=== PATIENT | female | born 1990 | race Caucasian/White ===

== ENCOUNTER 2017-06-28 18:24 | Emergency (ER) | payer OTHER ==
[2017-06-28 18:31] VITALS: BMI 25.7
[2017-06-28 18:36] VITALS: BP 119/88; PULSE 64; TEMP 97.9
--- NOTE | 2017-06-28 18:40 | PDOC ---
History of Present Illness - General History Source: Patient, Old Records Exam Limitations: No Limitations - History of Present Illness Initial Comments: 06/28/17 19:07 The patient is a 26 year old female with a significant past medical history of anxiety who presents to the emergency department with shortness of breath and chest tightness for 4 days. The patient reports that her symptoms have been progressively worsening since Tuesday. She reports that she took a medrol dose she had left over from a recent upper respiratory infection with no relief of symptoms. She endorses associated dry cough, weakness, and tingling/numbness bilaterally from her shoulders to her fingertips. She denies recent travel, recent surgeries, and swelling. She denies nausea, fever, and chills. She denies a history of pulmonary embolisms and DVTs. <Freedom Peterson - Last Filed: 06/28/17 19:10> <Buddy Navarro - Last Filed: 06/28/17 19:33> - General Chief Complaint: Shortness of Breath Stated Complaint: sob Time Seen by Provider: 06/28/17 18:34 Past History <Freedom Peterson - Last Filed: 06/28/17 19:10> - Past Medical History COPD: No Other medical history: pt states chronic bronchitis - Suicide/Smoking/Psychosocial Hx Smoking History: Never smoked Have you smoked in the past 12 months: No Hx Alcohol Use: No Drug/Substance Use Hx: No Substance Use Type: None <Buddy Navarro - Last Filed: 06/28/17 19:33> - Past Medical History Allergies/Adverse Reactions: Allergies Allergy/AdvReac Type Severity Reaction Status Date / Time No Known Allergies Allergy Verified 06/28/17 18:25 Home Medications: Ambulatory Orders NK [No Known Home Medication] 06/28/17 Review of Systems - Review of Systems Able to Perform ROS?: Yes Comments:: 06/28/17 19:07 CONSTITUTIONAL: (+) Generalized Weakness Absent: Fever, Chills, Diaphoresis, Malaise, Loss of Appetite HEENT: Absent: Rhinorrhea, Nasal Congestion, Throat Pain, Throat Swelling, Difficulty Swallowing, Mouth Swelling, Ear Pain, Eye Pain, Visual Changes CARDIOVASCULAR: (+) Chest tightness, bilateral arm numbness Absent: Syncope, Palpitations, Irregular Heart Rate, Lightheadedness, Peripheral Edema RESPIRATORY: (+) Cough, Shortness of Breath Absent: SOB with Exertion, Orthopnea, Wheezing, Stridor, Hemoptysis GASTROINTESTINAL: Absent: Abdominal pain, Abdominal Distension, Nausea, Vomiting, Diarrhea, Constipation, Melena, Hematochezia GENITOURINARY: Absent: Dysuria, Frequency, Urgency, Hesitancy, Flank Pain, Genital Pain MUSCULOSKELETAL: Absent: Myalgia, Arthralgia, Joint Swelling, Back pain, Neck Pain SKIN: Absent: Rash, Itching, PalloR HEMATOLOGIC/IMMUNOLOGIC: Absent: Easy Bleeding, Easy Bruising, Lymphadenopathy, Frequent infections ENDOCRINE: Absent: Unexplained Weight Gain, Unexplained Weight Loss, Heat Intolerance, Cold Intolerance NEUROLOGIC: Absent: Headache, Focal Weakness, Paresthesias, Vertigo, Lightheadedness, Unsteady Gait, Seizure, Mental Status Changes, Incontinence PSYCHIATRIC: Absent: Anxiety, Depression <Freedom Peterson - Last Filed: 06/28/17 19:10> *Physical Exam - Vital Signs Last Vital Signs Temp Pulse Resp BP Pulse Ox 97.9 F 64 16 119/88 100 06/28/17 18:25 06/28/17 18:25 06/28/17 18:25 06/28/17 18:25 06/28/17 18:25 - Physical Exam Comments: 06/28/17 19:07 GENERAL: The patient is awake, alert, and fully oriented, in no acute distress. HEAD: Normal with no signs of trauma. EYES: Pupils equal, round and reactive to light, extraocular movements intact, sclera anicteric, conjunctiva clear. ENT: Ears normal, nares patent, oropharynx clear without exudates. Moist mucous membranes. NECK: Normal range of motion, supple without lymphadenopathy, JVD, or masses. LUNGS: Breath sounds equal, clear to auscultation bilaterally. No wheezes, and no crackles. HEART: Regular rate and rhythm, normal S1 and S2 without murmur, rub or gallop. CHEST: (+) Costochondral tenderness bilaterally ABDOMEN: Soft, nontender, normoactive bowel sounds. No guarding, no rebound. No masses. EXTREMITIES: Normal range of motion, no edema. No clubbing or cyanosis. No cords , erythema, or tenderness. NEUROLOGICAL: Cranial nerves II through XII grossly intact. Normal speech, normal gait. PSYCH: Normal mood, normal affect. SKIN: Warm, Dry, normal turgor, no rashes or lesions noted. <Freedom Peterson - Last Filed: 06/28/17 19:10> - Vital Signs Last Vital Signs Temp Pulse Resp BP Pulse Ox 97.9 F 64 16 119/88 100 06/28/17 18:25 06/28/17 18:25 06/28/17 18:25 06/28/17 18:25 06/28/17 18:25 <Buddy Navarro - Last Filed: 06/28/17 19:33> Moderate Sedation - Procedure Monitoring Vital Signs: Vital Signs Temp Pulse Resp BP Pulse Ox 97.9 F 64 16 119/88 100 06/28/17 18:25 06/28/17 18:25 06/28/17 18:25 06/28/17 18:25 06/28/17 18:25 <Freedom Peterson - Last Filed: 06/28/17 19:10> - Procedure Monitoring Vital Signs: Vital Signs Temp Pulse Resp BP Pulse Ox 97.9 F 64 16 119/88 100 06/28/17 18:25 06/28/17 18:25 06/28/17 18:25 06/28/17 18:25 06/28/17 18:25 <Buddy Navarro - Last Filed: 06/28/17 19:33> Heart Score/ECG Review - ECG Impressions Comment:: 06/28/17 19:17 Twelve-lead EKG shows normal sinus rhythm at a rate of 65 bpm. The axis is normal. The intervals are all normal. There are no abnormal Q waves. There is no significant ST elevation or depression, but there is mild early repolarization, normal for age. Impression: Normal sinus rhythm at 65, normal 12-lead EKG. <Buddy Navarro - Last Filed: 06/28/17 19:33> Medical Decision Making - Medical Decision Making 06/28/17 19:07 Documentation prepared by Freedom Peterson, acting as certified medical coder for Buddy Navarro MD. <Freedom Peterson - Last Filed: 06/28/17 19:10> - Medical Decision Making 06/28/17 19:13 Patient is a healthy 26-year-old female. She has a history of reactive airways disease typically set off by upper respiratory infections. When she gets an infection she uses an inhaler as well as Medrol. Her last episode of upper respiratory infection was approximately one month ago. She has no risk factors for acute coronary syndrome. Her family history is positive for hypertension and diabetes, but negative for premature coronary disease. She comes in now complaining of 4 days of chest tightness with shortness of breath and parasternal chest discomfort. She has no risk factors for PE. She does not take control pills, there is no recent travel, and there is no family history of DVT or PE. She has had prior episodes of chest tightness and pain, which she related to anxiety. Today she read on the Internet that chest pain and tingling in the arms could be consistent with a heart attack or stroke, so she came to the ED for further evaluation. On examination, her vital signs are all completely normal. She appears well. There is no respiratory distress. Lungs are clear and heart is regular rhythm without gallop or murmur. There is parasternal chest wall tenderness to palpation bilaterally. Extremities are normal. Twelve-lead EKG shows normal sinus rhythm at [address] or T-wave changes. Chest x-ray PA and lateral is pending. Impression: Probable costochondritis. Possible component of anxiety. Air entry and expiration are normal, with no signs of reactive airways on examination. Plan: Tatiana Check chest x-ray prior to discharge. <Buddy Navarro - Last Filed: 06/28/17 19:33> *DC/Admit/Observation/Transfer <Freedom Peterson - Last Filed: 06/28/17 19:10> - Attestations Physician Attestion: 06/28/17 19:16 The scribe's documentation has been prepared under my direction and personally reviewed by me in its entirety. I have confirmed that the note above accurately reflects all work, treatment, procedures, and medical decision- making performed by me. <Buddy Navarro - Last Filed: 06/28/17 19:33> Diagnosis at time of Disposition: Costochondritis, acute - Discharge Dispostion Condition at time of disposition: Stable - Patient Instructions Printed Discharge Instructions: DI for Costochondritis Additional Instructions: Please return to the ER if you experience concerning or worsening symptoms including worsening chest pain, difficulty breathing, or fevers. You may use ibuprofen as needed at home to help manage your symptoms. It is important that you call to schedule a follow up appointment with your primary care provider within 1 week to discuss your ER visit and further management of your symptoms.
[2017-06-28] MEDS ORDERED: IBUPROFEN 600 MG TABLET (FP) PO ONE ×2 (18:45→19:24)
--- NOTE | 2017-06-28 18:52 | PDOC ---
History of Present Illness <Janki Mohamud - Last Filed: 06/28/17 20:22> - History of Present Illness Initial Comments: 06/28/17 18:45 The patient is a 26 year old female with no significant PMH who presents for evaluation of chest tightness and shortness of breath. The patient reports a 4 day history of chest tightness with associated shortness of breath that acutely worsened today prompting her presentation to the ED for further evaluation. She notes that she was concerned that she was having a "heart attack" and notes that she has had anxiety attacks in the past, but her current symptoms feel different. She states that she took a dose of a medrol dose pack she had left over from a bronchitis she experienced several months ago, but reports minimal improvement in her symptoms and has not tried any other medications. She denies recent long travel, history of PE, DVT, or OCP use. She otherwise denies fevers, chills, nausea, vomiting, cough, abdominal pain, or changes with urination or bowel movements or leg swelling. <Onofre Padron - Last Filed: 06/29/17 13:37> - General Chief Complaint: Shortness of Breath Stated Complaint: sob Time Seen by Provider: 06/28/17 18:34 Past History <Janki Mohamud - Last Filed: 06/28/17 20:22> - Past Medical History COPD: No Other medical history: pt states chronic bronchitis - Suicide/Smoking/Psychosocial Hx Smoking History: Never smoked Have you smoked in the past 12 months: No Hx Alcohol Use: No Drug/Substance Use Hx: No Substance Use Type: None <Onofre Padron - Last Filed: 06/29/17 13:37> - Past Medical History Allergies/Adverse Reactions: Allergies Allergy/AdvReac Type Severity Reaction Status Date / Time No Known Allergies Allergy Verified 06/28/17 18:25 Home Medications: Ambulatory Orders NK [No Known Home Medication] 06/28/17 Review of Systems - Review of Systems Comments:: 06/28/17 18:48 Constitutional: No fevers, chills, fatigue, malaise HEENT: No Rhinorrhea, nasal congestion, visual changes Cardiovascular: Chest Tightness. No syncope, palpitations, lightheadedness Respiratory: SOB. No Cough, Hemoptysis, Gastrointestinal: No Abdominal pain, Nausea, Vomiting, Constipation, Diarrhea, Melena Genitourinary: No Dysuria, Frequency, Urgency, Hesitancy, Hematuria, Flank pain Musculoskeletal: No Myalgia, arthralgia Skin: No rashes, itching, bruising, pallor Neurologic: No Headache, Dizziness, Numbness, Weakness, or Tingling Psychiatric: No Hallucinations. No SI or HI <Onofre Padron - Last Filed: 06/29/17 13:37> *Physical Exam - Vital Signs Last Vital Signs Temp Pulse Resp BP Pulse Ox 97.9 F 64 16 119/88 100 06/28/17 18:25 06/28/17 18:25 06/28/17 18:25 06/28/17 18:25 06/28/17 18:25 <Janki Mohamud - Last Filed: 06/28/17 20:22> - Vital Signs Last Vital Signs Temp Pulse Resp BP Pulse Ox 97.9 F 64 16 119/88 100 06/28/17 18:25 06/28/17 18:25 06/28/17 18:25 06/28/17 18:25 06/28/17 18:25 - Physical Exam Comments: 06/28/17 18:49 General Appearance: Nourished. No Apparent Distress HEENT: EOMI, MARINO. No Pharyngeal Erythema, Tonsillar Exudate, Tonsillar Erythema Neck: No Cervical Lymphadenopathy Respiratory/Chest: Lungs Clear, Normal Breath Sounds. Reproducible tenderness to palpation along the sternal border noted on exam. No Crackles, Rales, Rhonchi, Wheezing Cardiovascular: Regular Rhythm, Regular Rate. No Murmur, Gallops, Rubs Gastrointestinal/Abdominal: Normal Bowel Sounds, Soft. No Guarding, Rebound, Tenderness Musculoskeletal: No CVA Tenderness Extremity: No lower extremity edema. Normal Capillary Refill Integumentary: Normal Color, Dry, Warm Neurologic: Fully Oriented, Alert, Normal Mood/Affect, Normal Response, <Onofre Padron - Last Filed: 06/29/17 13:37> Moderate Sedation - Procedure Monitoring Vital Signs: Vital Signs Temp Pulse Resp BP Pulse Ox 97.9 F 64 16 119/88 100 06/28/17 18:25 06/28/17 18:25 06/28/17 18:25 06/28/17 18:25 06/28/17 18:25 <Janki Mohamud - Last Filed: 06/28/17 20:22> - Procedure Monitoring Vital Signs: Vital Signs Temp Pulse Resp BP Pulse Ox 97.9 F 64 16 119/88 100 06/28/17 18:25 06/28/17 18:25 06/28/17 18:25 06/28/17 18:25 06/28/17 18:25 <Onofre Padron - Last Filed: 06/29/17 13:37> ED Treatment Course - ADDITIONAL ORDERS Additional order review: Laboratory Results 06/28/17 19:20 Urine HCG, Qual Negative - Medications Given in the ED: ED Medications Discontinued Medications Generic Name Dose Route Start Last Admin Trade Name Freq PRN Reason Stop Dose Admin Ibuprofen 600 mg 06/28/17 18:45 06/28/17 19:41 Motrin - PO 06/28/17 18:46 600 mg ONCE ONE Administration <Janki Mohamud - Last Filed: 06/28/17 20:22> - RADIOLOGY Radiology Studies Ordered: Category Date Time Status CHEST PA & LAT [RAD] Stat Radiology 06/28/17 18:44 Ordered <Onofre Padron - Last Filed: 06/29/17 13:37> Medical Decision Making - Medical Decision Making 06/28/17 20:22 EKG WNL CXR clear DC w/ costochondritis -- MD Cade 06/28/17 20:23 <Janki Mohamud - Last Filed: 06/28/17 20:22> - Medical Decision Making 06/28/17 18:50 The patient is a 26 year old female with no significant PMH who presents for evaluation of chest tightness and shortness of breath. Differential includes but is not limited to: PE, Pneumothorax, Pneumonia, Bronchitis, ACS, Musculoskeletal, Costochondritis. Given the patient's reproducible tenderness on exam and history, it is likely her symptoms are musculoskeletal in nature and due to a costochondritis. The patient is at low risk for PE and DVT as per the PERC rule. We will obtain a chest plain film and ekg to evaluate for other possible etiologies. We will treat with ibuprofen in the meantime and continue to monitor and reassess while here in the ED. 06/28/17 19:00 Patient signed out to the night team pending chest plain film, ekg, and reassessment. <Onofre Padron - Last Filed: 06/29/17 13:37> *DC/Admit/Observation/Transfer - Discharge Dispostion Decision to Admit order: No <Janki Mohamud - Last Filed: 06/28/17 20:22> <NereidaBraxtonOnofre - Last Filed: 06/29/17 13:37> Diagnosis at time of Disposition: Costochondritis, acute - Discharge Dispostion Disposition: HOME Condition at time of disposition: Stable - Patient Instructions Printed Discharge Instructions: DI for Costochondritis Additional Instructions: Please return to the ER if you experience concerning or worsening symptoms including worsening chest pain, difficulty breathing, or fevers. You may use ibuprofen as needed at home to help manage your symptoms. It is important that you call to schedule a follow up appointment with your primary care provider within 1 week to discuss your ER visit and further management of your symptoms.
--- NOTE | 2017-06-29 11:13 | EKG ---
Test Reason : Blood Pressure : / mmHG Vent. Rate : 065 BPM Atrial Rate : 065 BPM P-R Int : 144 ms QRS Dur : 082 ms QT Int : 370 ms P-R-T Axes : -06 044 049 degrees QTc Int : 384 ms NORMAL SINUS RHYTHM NORMAL ECG NO PREVIOUS ECGS AVAILABLE Confirmed by FLORENCE BERG, GRICEL ([id number]) on 06/29/2017 11:13:31 AM Referred By: DR PASCUAL Confirmed By:GRICEL HENRIQUEZ MD
== END 2017-06-28 20:31 | disposition home or self-care (01) ==
LOC: FER 18:24
DX: M94.0 Chondrocostal junction syndrome [Tietze] (principal); J45.909 Unspecified asthma, uncomplicated
CPT/HCPCS: 71046-TC-FY; 84703; 93005; 99282-25

== ENCOUNTER 2018-05-17 18:42 | Emergency (ER) | payer SELFPAY ==
[2018-05-17 18:55] VITALS: BP 106/81; PULSE 104; TEMP 97.4; BMI 21.4
--- NOTE | 2018-05-17 19:15 | PDOC ---
History of Present Illness - General History Source: Patient Exam Limitations: No Limitations - History of Present Illness Initial Comments: 05/17/18 19:36 The patient is a 27 year old female, with no significant past medical history of who presents to the emergency department with rashes on her arms, leg, and back since this morning. The patient notes she woke up this morning and noticed she had rashes on her arms; she later went to the restroom and noticed them on her legs, chest and back. The patient states she has a dog who sleeps in her room, however, the dog does not sleep in her bed. The patient denies any recent travel. Denies using new lotions, creams, laundry detergent, or food. The patient denies chest pain, shortness of breath, headache or dizziness. The patient denies fever, chills, nausea, vomit, diarrhea or constipation. The patient denies dysuria, frequency, urgency or hematuria. PAST MEDICAL HISTORY: no significant history PAST SURGICAL HISTORY: no significant history FAMILY HISTORY: no pertinent history SOCIAL HISTORY: Pt lives with family and is employed. MEDICATIONS: reviewed ALLERGIES: Shrimp <Quique Ramos - Last Filed: 05/17/18 19:35> - General History Source: Patient Exam Limitations: No Limitations - History of Present Illness Initial Comments: A portion of this note was documented by scribe services under my direction. I have reviewed the details of the note, within reason, and agree with the documentation with the following case summary and management plan written by me. Patient treated in the ED. Nursing notes are reviewed and incorporated into the medical decision-making. Vital signs reviewed. Assessment and plan: This is a 27-year-old female who comes in complaining of a rash times one today. Patient said rashes itchy. On my exam it looks like patient has 2 etiologies 1 is a few bug bites/mosquito bites the other is a contact dermatitis appearing rash. Both should respond well to Benadryl or antihistamines patient was told to take them and follow-up with her primary care doctor 05/17/18 20:22 <Emmanuel Guzman I - Last Filed: 05/17/18 20:23> - General Chief Complaint: Rash Stated Complaint: RASH TO ARMS LEGS BACK AND CHEST Time Seen by Provider: 05/17/18 19:09 Past History <Quique Ramos - Last Filed: 05/17/18 19:35> - Past Medical History COPD: No - Suicide/Smoking/Psychosocial Hx Smoking History: Current every day smoker Have you smoked in the past 12 months: No Information on smoking cessation initiated: No Hx Alcohol Use: No Drug/Substance Use Hx: No Substance Use Type: None <Emmanuel Guzman I - Last Filed: 05/17/18 20:23> - Past Medical History Allergies/Adverse Reactions: Allergies Allergy/AdvReac Type Severity Reaction Status Date / Time shrimp Allergy Severe Difficulty Verified 05/17/18 18:44 Breathing Home Medications: Ambulatory Orders NK [No Known Home Medication] 05/17/18 Review of Systems - Review of Systems Able to Perform ROS?: Yes Comments:: 05/17/18 19:37 General: No fevers or chills, no weakness, no weight loss HEENT: No change in vision. No sore throat,. No ear pain CardioVascular: No chest pain or shortness of breath Respiratory:No cough, or wheezing. Gastrointestinal: no nausea, vomiting, diarrhea or constipation, No rectal bleeding Genitourinary: No dysuria, hematuria, or frequency Musculoskeletal: No joint or muscle pain or swelling Neurologic: No headache, vertigo, dizziness or loss of consciousness Psychiatric: nor depression Skin: (+) rashes on legs, arms, and back. Endocrine: no increased thirst or abnormal weight change Allergic: no skin or latex allergy All other systems reviewed and normal All Other Systems: Reviewed and Negative <Quique Ramos - Last Filed: 05/17/18 19:35> *Physical Exam - Vital Signs Last Vital Signs Temp Pulse Resp BP Pulse Ox 97.4 F L 104 H 18 106/81 100 05/17/18 18:43 05/17/18 18:43 05/17/18 18:43 05/17/18 18:43 05/17/18 18:43 - Physical Exam Comments: 05/17/18 19:37 General: Well-nourished well-developed individual, no acute distress HEENT: Throat: Normal, tonsils normal, no erythema or exudate Neck: Supple, no meningeal signs, no lymphadenopathy Eyes:Pupils equal reactive and round, extraocular motion intact Chest: Nontender to palpation Cardiac: S1-S2 normal, regular rate and rhythm, no murmurs rubs or gallops Respiratory: Lungs clear to auscultation bilateral Abdomen: Soft, nondistended, normal bowel sounds, nontender to palpation diffusely Extremities: Warm, dry, no cyanosis, clubbing, or edema Skin: (+) multiple small diffuse papular lesions with no confluents of the arm, legs, and back with intermittent larger raised papules. Neuro: Alert and oriented x3, nonfocal exam, grossly intact, normal gait <Quique Ramos - Last Filed: 05/17/18 19:35> - Vital Signs Last Vital Signs Temp Pulse Resp BP Pulse Ox 97.4 F L 104 H 18 106/81 100 05/17/18 18:43 05/17/18 18:43 05/17/18 18:43 05/17/18 18:43 05/17/18 18:43 <Emmanuel Guzman I - Last Filed: 05/17/18 20:23> *DC/Admit/Observation/Transfer - Attestations Scribe Attestion: 05/17/18 19:37 Documentation prepared by Quique Ramos, acting as medical leader for Emmanuel Guzman MD <Quique Ramos - Last Filed: 05/17/18 19:35> - Discharge Dispostion Decision to Admit order: No <Emmanuel Guzman I - Last Filed: 05/17/18 20:23> Diagnosis at time of Disposition: Contact dermatitis Qualifiers: Contact dermatitis type: allergic Bug bites Qualifiers: Encounter type: initial encounter Qualified Code(s): W57.XXXA - Bitten or stung by nonvenomous insect and other nonvenomous arthropods, initial encounter - Discharge Dispostion Disposition: HOME Condition at time of disposition: Stable - Patient Instructions Additional Instructions: Take an antihistamine as directed on the box, For non drowsy take Claritin or Noemí. If you take benedryl it may make you drowsy so limit that to the nighttime hours. If rash persists follow up with an wildlife conservationist of tube making machine operator.
== END 2018-05-17 19:49 | disposition home or self-care (01) ==
LOC: FER 18:42
DX: R21 Rash and other nonspecific skin eruption (principal); W57.XXXA Bitten or stung by nonvenomous insect and other nonvenomous arthropods, initial encounter; Y93.89 Activity, other specified; Y92.89 Other specified places as the place of occurrence of the external cause; F17.210 Nicotine dependence, cigarettes, uncomplicated
CPT/HCPCS: 99281-25

== ENCOUNTER 2019-12-21 10:25 | Emergency (ER) | payer SELFPAY ==
[2019-12-21 10:37] VITALS: BP 116/70; PULSE 96; TEMP 98.4; BMI 21.4
== END 2019-12-21 12:03 | disposition home or self-care (01) ==
LOC: JERFT 10:25
DX: J34.89 Other specified disorders of nose and nasal sinuses (principal)
CPT/HCPCS: 99283-25; C9803; U0003

== ENCOUNTER 2020-01-06 20:14 | Emergency (ER) | payer SELFPAY ==
[2020-01-06 20:46] VITALS: BP 135/97; PULSE 101; TEMP 97.8; BMI 21.4
== END 2020-01-06 21:42 | disposition home or self-care (01) ==
LOC: JERFT 20:14
DX: M94.0 Chondrocostal junction syndrome [Tietze] (principal); R05 Cough; U07.1 COVID-19
CPT/HCPCS: 71045-TC-FY; 93005; 93010; 99284-25; C9803; U0003

== ENCOUNTER 2020-04-25 21:15 | Emergency (ER) | payer OTHER ==
[2020-04-25 21:20] VITALS: BP 106/73; PULSE 97; TEMP 97; BMI 21.2
== END 2020-04-25 23:12 | disposition home or self-care (01) ==
LOC: JER 21:15
DX: L02.412 Cutaneous abscess of left axilla (principal)
CPT/HCPCS: 76882-TC-LT; 99282-25

== ENCOUNTER 2020-04-27 11:51 | Emergency (ER) | payer OTHER ==
[2020-04-27 11:54] VITALS: BP 101/71; PULSE 92; TEMP 98; BMI 21.2
== END 2020-04-27 12:08 | disposition home or self-care (01) ==
LOC: JERFT 11:51
DX: Z48.00 Encounter for change or removal of nonsurgical wound dressing (principal)
CPT/HCPCS: 99281-25

== ENCOUNTER 2020-04-28 00:55 | Emergency (ER) | payer OTHER ==
[2020-04-28 01:25] VITALS: BP 106/74; PULSE 91; TEMP 98.5; BMI 21.8
== END 2020-04-28 02:39 | disposition home or self-care (01) ==
LOC: JER 00:55
DX: R21 Rash and other nonspecific skin eruption (principal)
CPT/HCPCS: 99282-25

== ENCOUNTER 2020-10-28 17:04 | Emergency (ER) | payer OTHER ==
[2020-10-28 17:09] VITALS: BP 139/91; PULSE 82; TEMP 98.8; BMI 21.4
[2020-10-28 19:12] LABS: EOS % 4.3 % (0-4.5); HEMOGLOBIN 13.8 GM/dl (10.7-15.3); MCH 28.5 pg (25.7-33.7); MEAN PLT VOLUME 8.1 fl (7.5-11.1); RDW 12.3 % (11.6-15.6)
[2020-10-28 19:16] LABS: BASO % 4.1 % (0-2.0); HEMATOCRIT 41.1 % (32.4-45.2); LYMPH % 43.1 % (8-40); MCHC 33.7 g/dl (32.0-36.0); MEAN CELL VOLUME 84.8 fl (80-96); MONO % 8.6 % (3.8-10.2); NEUT % 39.9 % (42.8-82.8); PLATELET COUNT 277 10^3/uL (134-434); RBC 4.85 M/mm3 (3.60-5.2); WHITE BLOOD COUNT 4.9 K/mm3 (4.0-10.8)
[2020-10-28 19:36] LABS: ALBUMIN 4.3 g/dl (3.4-5.0); BILIRUBIN,TOTAL 0.7 mg/dl (0.2-1); CALCIUM 9.4 mg/dl (8.5-10); CREATININE 0.4 mg/dl (0.55-1.3)
== END 2020-10-28 19:10 | disposition home or self-care (01) ==
LOC: FER 17:04
DX: R23.2 Flushing (principal); R03.0 Elevated blood-pressure reading, without diagnosis of hypertension; E05.90 Thyrotoxicosis, unspecified without thyrotoxic crisis or storm; R00.2 Palpitations
CPT/HCPCS: 36415; 80053; 84439; 84443; 84481; 85025; 93005; 99283-25

== ENCOUNTER 2021-03-26 18:08 | Emergency (ER) | payer OTHER ==
[2021-03-26 18:20] VITALS: BP 125/78; PULSE 94; TEMP 99.7; BMI 22.1
== END 2021-03-26 18:54 | disposition home or self-care (01) ==
LOC: FER 18:08
DX: Z77.21 Contact with and (suspected) exposure to potentially hazardous body fluids (principal)
CPT/HCPCS: 99281-25

== ENCOUNTER 2021-08-12 17:41 | Emergency (ER) | payer OTHER ==
[2021-08-12] MEDS ORDERED: ACETAMINOPHEN 1000 MG/100 ML BAG IVPB ONE (18:44)
[2021-08-12] MEDS ORDERED: SODIUM CHLORIDE 0.9% 1000 ML INFUS.BAG IV ONE (18:44)
[2021-08-12] MEDS ORDERED: ACETAMINOPHEN INJECTION 100 ML IVPB ONE (18:48)
[2021-08-12 19:20] LABS: HEMATOCRIT 39.6 % (32.4-45.2); HEMOGLOBIN 14.1 G/dL (10.7-15.3); MCH 30.4 pg (25.7-33.7); MCHC 35.6 g/dl (32.0-36.0); MEAN CELL VOLUME 85.6 fl (80-96); MEAN PLT VOLUME 8.1 fl (7.5-11.1); PLATELET COUNT 260.1 10^3/uL (134-434); RBC 4.63 10^6/uL (3.60-5.2); RDW 13.9 % (11.6-15.6); WHITE BLOOD COUNT 6.9 10^3/uL (4.0-10.8)
[2021-08-12 19:21] LABS: ALBUMIN 4.3 g/dl (3.4-5.0); BILIRUBIN,TOTAL 0.7 mg/dl (0.2-1); CALCIUM 9.4 mg/dl (8.5-10); CREATININE 0.5 mg/dl (0.55-1.3); TOT PROT 7.4 g/dl (6.4-8.2)
[2021-08-12 20:17] LABS: PLATELET ESTIMATE ADEQUATE
[2021-08-12 20:27] VITALS: BP 110/75; PULSE 68; TEMP 98.5; BMI 21.9
== END 2021-08-12 21:25 | disposition home or self-care (01) ==
LOC: FER 17:41
PROC: 3E033GC Introduction of Other Therapeutic Substance into Peripheral Vein, Percutaneous Approach (ICD-10-PCS; principal; 2021-08-12)
DX: N83.292 Other ovarian cyst, left side (principal); K59.09 Other constipation
CPT/HCPCS: 36415; 74177-TC; 80053; 81003; 84703; 85025; 87086; 99285-25; Q9967

== ENCOUNTER 2022-04-21 17:26 | Emergency (ER) | payer OTHER, BC ==
[2022-04-21 17:31] VITALS: RESP 20; TEMP 98; BMI 24.3
[2022-04-21] MEDS ORDERED: predniSONE 20 MG TABLET (UD) PO ONE (17:42)
[2022-04-21] MEDS ORDERED: predniSONE 20 MG TABLET (UD) ONE (17:49)
[2022-04-21] MEDS ORDERED: predniSONE 10 MG TABLET (UD) ONE (17:49)
[2022-04-21 18:51] VITALS: BP 117/87; PULSE 66
== END 2022-04-21 18:57 | disposition home or self-care (01) ==
LOC: JER 17:26
DX: T78.40XA Allergy, unspecified, initial encounter (principal)
CPT/HCPCS: 99283-25

== ENCOUNTER 2023-08-16 18:32 | Emergency (ER) | payer BC, OTHER ==
[2023-08-16 19:01] VITALS: BP 109/74; PULSE 91; RESP 20; TEMP 98; BMI 26.6
[2023-08-16 20:10] LABS: HEMATOCRIT 33.7 % (32.4-45.2); MCH 27.3 pg (25.7-33.7); MCHC 32.5 g/dl (32.0-36.0); MEAN CELL VOLUME 83.8 fl (80-96); MEAN PLT VOLUME 7.8 fl (7.5-11.1); PLATELET COUNT 295.6 10^3/uL (134-434); RBC 4.02 10^6/uL (3.60-5.2); WHITE BLOOD COUNT 8.5 10^3/uL (4.0-10.8)
[2023-08-16 20:20] LABS: PLATELET ESTIMATE ADEQUATE
[2023-08-16 20:26] LABS: BILIRUBIN,TOTAL 0.3 mg/dl (0.2-1); CALCIUM 9.6 mg/dl (8.5-10.1); CREATININE 0.4 mg/dl (0.6-1.3); POTASSIUM 3.7 mmol/L (3.5-5.1); TOT PROT 6.4 g/dl (6.4-8.2)
== END 2023-08-16 21:46 | disposition home or self-care (01) ==
LOC: FER 18:32
DX: O26.892 Other specified pregnancy related conditions, second trimester (principal); R10.31 Right lower quadrant pain; Z3A.19 19 weeks gestation of pregnancy
CPT/HCPCS: 36415; 76801-TC; 80053; 81003; 81015; 85027; 87086; 99284-25

== ENCOUNTER 2024-08-11 21:38 | Emergency (ER) | payer BC, OTHER ==
[2024-08-11] MEDS ORDERED: FAMOTIDINE 20 MG/50 ML IVPB 20 MG/50 ML MG IVPB ONE (21:43)
[2024-08-11] MEDS ORDERED: EPINEPHrine 1:1000 P/F - 1 MG/ML AMP ONE (21:43)
[2024-08-11] MEDS ORDERED: methylPREDNISolone NA SUCC 125 MG/2 ML VIAL ONE (21:43)
[2024-08-11] MEDS: SODIUM CHLORIDE 1,000 ML IV ONE (21:45)
[2024-08-11] MEDS: FAMOTIDINE 20 MG/50 ML IVPB 20 MG/50 ML MG IVPB ONE (21:50)
[2024-08-11] MEDS: methylPREDNISolone NA SUCC 125 MG/2 ML VIAL IVPUSH ONE (21:52)
[2024-08-11] MEDS: EPINEPHrine 1:1,000 0.3 MG/0.3 ML SYR IM ONE (21:52)
[2024-08-11 21:57] VITALS: BP 120/93; TEMP 97.5
[2024-08-11 22:00] VITALS: PULSE 82; RESP 20
== END 2024-08-12 01:21 | disposition home or self-care (01) ==
LOC: FER 21:38
PROC: 3E033GC Introduction of Other Therapeutic Substance into Peripheral Vein, Percutaneous Approach (ICD-10-PCS; principal; 2024-08-11)
PROC: 3E033GC Introduction of Other Therapeutic Substance into Peripheral Vein, Percutaneous Approach (ICD-10-PCS; 2024-08-11)
PROC: 3E023GC Introduction of Other Therapeutic Substance into Muscle, Percutaneous Approach (ICD-10-PCS; 2024-08-11)
DX: R22.1 Localized swelling, mass and lump, neck (principal); T78.1XXA Other adverse food reactions, not elsewhere classified, initial encounter
CPT/HCPCS: 99284-25; J0169